=== PATIENT | male | born 1970 | race Caucasian/White ===

== ENCOUNTER 2016-08-24 21:10 | Emergency (ER) | payer OTHER ==
--- NOTE | 2016-08-25 07:40 | ER ---
ADMIT: 08/24/2016 RM/LOC: ER [facility] MR#: [id number] [address] [id number] AMADORSARA ROBERTSONKaden Zamorano [address] [place] [address] Emergency Room Report SEX: M AGE: 46 : 1970 DATE: 08/24/2016 CHIEF COMPLAINT: Cough. HISTORY OF PRESENT ILLNESS: The patient is a 46-year-old [place] patient with chronic migraines, chronic pain, complaining of chills, fever, body aches for the past 2 days with increasing shortness of breath. Did receive flu vaccine. Denies any nausea, vomiting, or diarrhea. PHYSICAL EXAMINATION: Exam remarkable for toxic-appearing, febrile male with rhonchitic cough, otherwise clear breath sounds. LABORATORY AND X-RAY DATA: Chest x-ray, no acute findings except increased interstitial markings. Normal CBC, CMP, lactic 2.4, CRP 2.14, BN peptide 27. ASSESSMENT AND PLAN: The patient given Tylenol 1 g, Levaquin 500 mg p.o. in department and daily x7 days. Follow up with Dr. Guillaume this week at the [place]. Cheng Ramey MD/ louis JOB #: [id number] CC: Cheng Ramey MD, Attending Physician [facility] Physician, Family Physician Rand Guillaume MD
== END 2016-08-24 22:50 | disposition home or self-care (01) ==
LOC: ER 21:10
DX: J40 Bronchitis, not specified as acute or chronic (principal); R50.9 Fever, unspecified; Z90.49 Acquired absence of other specified parts of digestive tract; Z79.899 Other long term (current) drug therapy

== ENCOUNTER 2016-09-27 22:57 | Emergency (ER) | payer OTHER ==
--- NOTE | 2016-10-09 16:41 | ER ---
ADMIT: 09/27/2016 RM/LOC: ER [facility] MR#: [id number] [address] [id number] STEFF GREEN [address] [place] [address] Emergency Room Report SEX: M AGE: 46 : 1970 DATE: 09/27/2016 A 46-year-old, comes with complaints of a headache. He says he gets frequent migraine headaches similar to this one. He then stated normally he gets cocktail of "Dilaudid, Phenergan, and sometimes morphine, all pushes. He then went on to say if does not get these usually he has to return because "his headache comes right back." See T-sheet for history and physical. The patient is diagnosed with headache and given ketorolac, diphenhydramine, and DHE. Instructed to follow up with his primary doctor this coming week if needed. Dexter Medina MD/ louis JOB #: [id number] CC: Milind Esquivel MD, Attending Physician
== END 2016-09-28 02:15 | disposition home or self-care (01) ==
LOC: ER 22:57
DX: R51 Headache (principal); Z90.49 Acquired absence of other specified parts of digestive tract; Z98.890 Other specified postprocedural states; Z79.899 Other long term (current) drug therapy